=== PATIENT | male | born 1985 | race Caucasian/White ===

== ENCOUNTER 2022-05-29 11:03 | Emergency (ER) | payer OTHER ==
[~2022-05-29] VITALS: Ht 170.2 cm; Wt 104.3 kg
[2022-05-29 12:05] VITALS: BP 154/87
--- NOTE | 2022-05-29 12:05 | NUR ---
CAME IN FOR R ANKLE PAIN x 2 DAYS. "FELT A CLICK, POP THEN SWOLLEN THE NXT DAY, TROUBLE WALKING YESTERDAY." PT STATED 6/10 PAIN ON PAIN SCALE. PT IS ABLE TO AMBULATE ON HIS OWN WITH STEADY GAIT. AWAITING MD ORDERS.
--- NOTE | 2022-05-29 12:28 | NUR ---
PT SEEN BY DR OATES FOR EVAL
--- NOTE | 2022-05-29 12:34 | NUR ---
TECH AT CHAIR SIDE FOR XRAY
--- NOTE | 2022-05-29 13:14 | NUR ---
TRES CASTRO AT BEDSIDE
[2022-05-29] MEDS ORDERED: IBUPROFEN 600 MG TABLET PO ONE (15:00)
[2022-05-29] MEDS ORDERED: IBUPROFEN 600 MG TABLET ONE (15:03)
[2022-05-29] MEDS ORDERED: IBUP-1955 PO (15:03)
--- NOTE | 2022-05-29 15:06 | NUR ---
TECH AT BEDSIDE FOR JAMEY WRAP APPLICATION AND CRUTCH TRAINING.
--- NOTE | 2022-05-29 15:17 | NUR ---
Patient discharged to home in stable condition. Written and verbal after care instructions given. Patient verbalizes understanding of instruction.
== END 2022-05-29 15:17 | disposition home or self-care (01) ==
LOC: ER 11:06
DX: M25.471 Effusion, right ankle (principal)
CPT/HCPCS: 73610-TC; 93971-TC